=== PATIENT | female | born 1985 | race Caucasian/White ===

== ENCOUNTER 2025-01-03 12:49 | Emergency (ER) | payer SELFPAY ==
[2025-01-03 13:08] VITALS: BP 127/100
[2025-01-03] MEDS: XANAX 1 MG PO (15:36)
--- NOTE | 2025-01-03 15:43 | ED.GENMED ---
History of Present Illness
General
Chief Complaint: Withdrawal Symptoms
Source: patient
Exam Limitations: none
Time Seen by Provider: 01/03/25 15:05
Nursing documentation reviewed up to this point in time: agreed with
History of Present Illness
History of Present Illness:
pt is a 39 y/o F
h/o polysubstance abuse (mostly methamphetamine, smokes it, and xanax)
here with symptoms likely due to withdrawal
she was living in [place] for the past several months, though her family is from here
she is trying to move back here because she has had a lot of trouble with being in [facility] with her boyfriedn who also relapsed on crack cocaine
pt says that a few mo ago she started using crack and then started up meth while on the crack cocaine,a ll the while using a bar of xanax daily as well
the jackieetn's time line of events hte past week is very hard to understand
she is tangential and very anxious and doesn't seem to be making sense
apparently therew as a possibilty she had a withdrawal seizure a few days ago
flew to [place] and missed her layover and may have gone to [facility] there, ended up at a homeless longterm, used metha few more days and then ended up here
she is at her mom's house now but her mom is out of town
pt is very overwhelemd with anxiety, chest tightness, joitn pain, fatigue,
she did eat and ahs slept some
she last used meth 24 hours ago
last thinks she used bz maybe 2-3 days ago
she has not had any vomiting, syncope
Past History
Past History
ED Past Medical History: Psychiatric
Social History
Tobacco: Smoker
Alcohol: Occasional
Drug: Other (meth and xanax)
Personal: Single
Living: alone
Review of Systems
Review of Systems
Allergies reviewed?: Yes
All Other Systems: Not applicable
Psychiatric: Denies suicidal
Phy Exam
Physical Exam
Physical Exam:
GENERAL: Alert , anxious, tachy, persteverating, tangential
EYE: pupils equal and reactive
NECK: Supple
ENT: o/p clr, mmm.
CARDIAC: tachy 100s
LUNGS: Clear breath sounds bilaterally, no acute respiratory distress, no wheezes/rales/rhonchi
ABDOMEN: Soft, without focal tenderness, no r/g, no cvat, normal bowel sounds
NEUROLOGICAL: Alert and oriented, no focal neuro deficits
SKIN: Warm and dry, skin intact.
MUSCULOSKELETAL: No edema, well perfused. neg davidson's sign
PSYCH: anxious, sometimes doesn't answer question, tangential, but no SI, depression, HI, hallucinations
Course
Orders/Labs/Results
Orders:
Orders
01/03/25 12:52
EKG [Electrocardiogram (*1)] Urgent
Reason for Study: Chest Pain
EKG- Treatment ONCE
01/03/25 15:32
0.9% Sodium Chloride 1000 ml [Nss] 1,000 ml IV BOLUS
Alprazolam [Xanax] 1 mg PO NOW STA
Test Result ONCE
01/03/25 16:38
Complete Blood Count/With Diff Urgent
Comprehensive Metabolic Panel Urgent
D-Dimer Urgent
HCG, Serum Qualitative Screen Urgent
Troponin I Urgent
01/03/25 16:41
Lorazepam [Ativan] 1 mg IV NOW STA
01/03/25 16:49
Fentanyl, Urine Urgent
Urine Drug Abuse Screen Urgent
Date Specimen was Collected: 01/03/25
Time Specimen was Collected: 16:48
Abnormal Lab Results
01/03/25 01/03/25
16:38 16:49
Chloride 109 H mmol/L
(98-107)
Glucose 112 H mg/dl
(70-99)
Ur Amphetamines Screen Positive H
(Negative)
U Methamphetamines Scrn Positive H
(Negative)
U Benzodiazepines Scrn Positive H
(Negative)
U Marijuana (THC) Screen Positive H
(Negative)
01/03/25 16:38
01/03/25 16:38
Vital Signs
Initial and Last Documented VS:
Initial Vital Signs
Temp Pulse Resp BP Pulse Ox
36.9 C 107 16 127/100 98
01/03/25 13:08 01/03/25 13:08 01/03/25 13:08 01/03/25 13:08 01/03/25 13:08
Last Documented Vital Signs
Temp Pulse Resp BP Pulse Ox
36.4 C 85 18 132/86 100
01/03/25 20:00 01/03/25 20:00 01/03/25 20:00 01/03/25 20:00 01/03/25 20:00
MDM/Problems Addressed
Differential Diagnosis Includes:
anxiet, bz withdrawal, meth abuse
MDM/Problems Addressed:
39 y/o F
very tangential
difficult to understand story
but traveled from [facility], she says, in order to move back here to get clean from meth and xanax
used along the way and was hospitalized for possible seizure? at some point
the timeline changes
she is here becuase her withdrawal feels worse than usual
she has severe chest symptoms, anxiety, pressure, worse wtih deep breathing
she has nto had any fever/chills, cough, syncope
may have had withdrawal seiuzre earlier this week, she cannot be sure
pt is very anxiuos, hypertensive, tachyhcaridc, fidgety; No SI, no HI, no hallucinations
requesting detox
pt asked for med because of having IV draw
given xanax
but then still having sigifniciatn anxiety, tachy etc
uses 1 xanax bar daily
so given iv ativan
pt symptoms very much improved
i spoke with Trenton garcia who tried to convince pt for inpatient today but she has a cat she needs to make arrangements for and then she will likely return tomorrow
the medicalscreening exam tonight should be sufficient
d dimer, trop neg
sinus tachy ekg
pulse ox normal
clear lungs
no murmur
no IVDA
declined CXR;
d/c home
2 doses ativan prn for home to prevent bz withdarwal;
*Critical Care Note
Total Time (30-74mins, 75-104mins- exclusive of procedures): Not Applicable
ED Attending Note
-
Portions of this chart may have been created with voice recognition software.� Occasional wrong word or��sound alike� substitutions may have occurred due to the inherent limitations of voice recognition software.
Discharge Plan
Departure
Patient Disposition: Home (Routine Discharge)
Date of Disposition: 01/03/25
Time of Disposition: 19:54
Patient with high blood pressure during this ER visit?: No
Condition: Fair
Covid-19: Not Applicable
Discharge Problem:
Benzodiazepine withdrawal, Methamphetamine abuse
Instructions: Drug Misuse and Addiction (DC)
Prescriptions:
New
lorazepam [Ativan] 1 mg tablet
1 mg PO BID PRN (Reason: agitation) Qty: 2 0RF
Referrals:
NONE,* [Family Provider] -
Activity Restrictions/Additional Instructions:
YOU WERE OFFERED INPATIENT REHAB TODAY BUT DECLINED
RETURN NEEDED
YOU CAN TRY A DOSE OF ATIVAN TONIGHT OR EVERY 8 HOURS NEEDED FOR ANXIETY
Interventions
Interventions:
*Risk Screen - Suicide Last Done: 01/03/25 13:08
*General Assessment Last Done: 01/03/25 15:13
*Neglect/Abuse Screening Last Done: 01/03/25 13:08
*ED- Fall Risk Assessment Last Done: 01/03/25 15:13
*ED COVID-19 Vaccine History Last Done: 01/03/25 15:45
*Nursing Disposition Last Done: 01/03/25 20:20
ED- Neurological Assessment Last Done: 01/03/25 14:49
ED-Psychological Assessment Last Done: 01/03/25 14:13
Discharge Date and Time
Discharge Date/Time: 01/03/25 20:20
Print Language: PUERTO RICAN
[2025-01-03] MEDS: ATIVAN 1 MG IV (16:43)
[2025-01-03] MEDS: NSS 1000 IV (16:43)
[2025-01-03 17:02] LABS: Hematocrit 39.8 % (37.0-47.0); Hemoglobin 13.5 g/dL (12.0-16.0); Mean Corp Hgb Conc. 33.9 g/dL (33.0-37.0); Mean Corpuscular Hgb 30.6 pg (27.0-31.0); Mean Corpuscular Volume 90.2 fL (81.0-99.0); Mean Platelet Volume 10.2 fL (7.4-10.4); Platelet Count 247 10^3/uL (130-400); Red Blood Cell Count 4.41 10^6/uL (4.20-5.40); Red Cell Dist. Width 13.2 % (11.5-14.5); White Blood Cell Count 8.2 10^3/uL (4.8-10.8)
[2025-01-03 17:05] LABS: D-Dimer 0.43 ug/mlFEU (0.00-0.50)
[2025-01-03 17:09] LABS: HCG, Serum Qualitative Screen Negative
[2025-01-03 17:11] LABS: Amphetamines Positive (Negative); Barbiturates Negative (Negative); Benzodiazepines Positive (Negative); Buprenorphine Negative (Negative); Cocaine Negative (Negative); Marijuana Positive (Negative); Methadone Negative (Negative); Methamphetamines Positive (Negative); Opiates Negative (Negative); Phencyclidine Negative (Negative); Tricyclic Antidepressants Negative (Negative)
[2025-01-03 17:13] LABS: ALT (SGPT) 14 U/L (0-35); AST (SGOT) 20 U/L (14-36); Albumin 4.5 g/dl (3.5-5.0); Alkaline Phosphatase 99 U/L (38-126); Blood Urea Nitrogen 9 mg/dl (7-17); Calcium 9.6 mg/dl (8.4-10.2); Carbon Dioxide 26 mmol/L (22-30); Chloride 109 mmol/L (98-107); Glucose 112 mg/dl (70-99); Potassium 4.3 mmol/L (3.5-5.1); Sodium 141 mmol/L (135-145); Total Bilirubin 0.4 mg/dl (0.2-1.3); Total Protein 7.8 g/dl (6.3-8.2); eGFR > 60.00
[2025-01-03 17:15] LABS: Troponin I < 0.012 ng/ml
[2025-01-03 17:22] LABS: Fentanyl, Urine Negative (Negative)
[2025-01-03 17:26] LABS: % Basophils 0.7 % (0-2); % Eosinophils 0.2 % (0-6); % Immature Granulocytes 0.2 % (0-0.5); % Lymphocytes 28.8 % (20.5-51.1); % Monocytes 7.9 % (1.7-9.3); % Neutrophils 62.2 % (42.2-75.2); Absolute Basophils 0.1 10^3/uL (0-0.2); Absolute Lymphocytes 2.4 10^3/uL (1.2-3.4); Absolute Monocytes 0.6 10^3/uL (0.1-0.6); Absolute Neutrophils 5.1 10^3/uL (1.4-6.5); Nucleated Red Blood Cells % 0 %
[2025-01-03 20:00] VITALS: BP 132/86
== END 2025-01-03 20:20 | disposition home or self-care (01) ==
LOC: EMR 12:49
PROVIDERS: Physician Assistant; EMERGENCY PHYSICIAN Student in an Organized Health Care Education/Training Program
DX: F13.239 Sedative, hypnotic or anxiolytic dependence with withdrawal, unspecified (principal); F15.10 Other stimulant abuse, uncomplicated; F17.200 Nicotine dependence, unspecified, uncomplicated
CPT/HCPCS: 96374; 96361; 99284; 80053; 80306; 80307; 84484; 84703; 85025; 85379; 93005

== ENCOUNTER 2025-01-08 12:57 | Emergency (ER) | payer SELFPAY ==
[2025-01-08 12:59] VITALS: BP 132/77
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
[2025-01-08] MEDS: MOTRIN 600 MG PO (15:12)
[2025-01-08 17:43] VITALS: BP 120/82
== END 2025-01-08 17:56 | disposition home or self-care (01) ==
LOC: EMR 12:57
PROVIDERS: EMERGENCY PHYSICIAN Student in an Organized Health Care Education/Training Program
DX: S06.0XAA Concussion with loss of consciousness status unknown, initial encounter (principal); Y04.2XXA Assault by strike against or bumped into by another person, initial encounter; F19.11 Other psychoactive substance abuse, in remission; F17.200 Nicotine dependence, unspecified, uncomplicated; F41.9 Anxiety disorder, unspecified
CPT/HCPCS: 99284; 70450